=== PATIENT | male | born 1960 | race Caucasian/White ===

== ENCOUNTER 2018-01-17 18:19 | Emergency (ER) | payer MEDICARE, MEDICAID ==
[~2018-01-17] VITALS: Ht 182.9 cm; Wt 127.7 kg
[2018-01-17 18:34] LABS: GLUCOSE,POINT OF CARE 376 MG/DL (70-110)
[2018-01-17] MEDS ORDERED: SERT100T12 PO (18:37)
[2018-01-17] MEDS ORDERED: INSU100I3 SQ (18:37)
[2018-01-17] MEDS ORDERED: CLOZ100 PO (18:37)
[2018-01-17] MEDS ORDERED: TRAZ-219 PO (18:37)
[2018-01-17] MEDS ORDERED: GEMF600T3 PO (18:37)
[2018-01-17] MEDS ORDERED: INSLAN SQ (18:37)
[2018-01-17] MEDS ORDERED: METF500T6 PO (18:37)
[2018-01-17 19:51] LABS: BASOPHILS % (AUTO) 0.8 % (0.0-2.0); EOSINOPHILS % (AUTO) 2.5 % (1.0-6.0); HEMATOCRIT 37.1 % (41-53); HEMOGLOBIN 12.6 g/dL (13.5-17.5); LYMPHOCYTES # (AUTO) 1.8 K/uL (1.0-4.8); LYMPHOCYTES % (AUTO) 22.1 % (22.0-44.0); MEAN CORPUSCULAR HEMOGLOBIN 28.1 pg (26.0-34.0); MEAN CORPUSCULAR HGB CONC 33.9 G/dL (31.0-37.0); MEAN CORPUSCULAR VOLUME 83 fL (80-100); MONOCYTES # (AUTO) 0.4 K/uL (0.1-1.0); MONOCYTES % (AUTO) 5.2 % (2.0-9.0); NEUTROPHILS # (AUTO) 5.7 K/uL (1.8-7.7); NEUTROPHILS % (AUTO) 69.4 % (40.0-70.0); PLATELET COUNT (AUTO) 155 K/uL (150-450); RED BLOOD CELL COUNT(AUTO) 4.48 MIL/uL (4.50-5.90)
[2018-01-17 20:03] LABS: ANION GAP 16 mmol/L (8-16); CALCIUM, TOTAL 8.6 mg/dL (8.8-10.5); CARBON DIOXIDE 21 mmol/L (22-29); CHLORIDE 97 mmol/L (98-107); CREATININE 1.21 mg/dL (0.60-1.30); GLOMERULAR FILTR. RATE CALC > 60 mL/min (>60); GLUCOSE,RANDOM 385 mg/dL (70-110); POTASSIUM 4.2 mmol/L (3.5-5.1); SODIUM SERUM 134 mmol/L (136-145); UREA NITROGEN, BLOOD 18 mg/dL (7-18)
[2018-01-17 20:09] LABS: ALANINE AMINOTRANSFERASE 25 U/L (12-78); ALBUMIN 3.9 g/dL (3.4-5.0); ALKALINE PHOSPHATASE 93 U/L (46-116); ASPARTATE AMINOTRANSFERASE 33 U/L (15-37); BILIRUBIN,TOTAL 0.4 mg/dL (0.1-1.0); TOTAL PROTEIN, SERUM 8.2 g/dL (6.4-8.2)
[2018-01-17] MEDS ORDERED: INSULIN REGULAR, HUMAN 100 UNITS/ML SQ ONE (23:15)
[2018-01-17 23:51] VITALS: BP 126/86
[2018-01-17 23:58] LABS: GLUCOSE,POINT OF CARE 338 MG/DL (70-110)
== END 2018-01-17 23:55 | disposition home or self-care (01) ==
LOC: EMS 18:23
DX: Z04.6 Encounter for general psychiatric examination, requested by authority (principal); E11.65 Type 2 diabetes mellitus with hyperglycemia; F32.9 Major depressive disorder, single episode, unspecified; F20.9 Schizophrenia, unspecified; Z90.49 Acquired absence of other specified parts of digestive tract; Z79.4 Long term (current) use of insulin; Z79.899 Other long term (current) drug therapy
CPT/HCPCS: 36415; 80053; 82962; 85025; 96372; 99284; G0480; J1815

== ENCOUNTER 2018-03-31 17:59 | Emergency (ER) | payer MEDICARE, MEDICAID ==
[~2018-03-31] VITALS: Ht 182.9 cm; Wt 127.7 kg
[~2018-03-31 17:59] MED LIST: ACET-784 PO; AMPI3VIA IM; ASPI81TA87 PO; ATOR20TA86 PO; INSLAN SQ; MULT-1239 PO
[2018-03-31 22:13] VITALS: BP 132/78
== END 2018-03-31 22:17 | disposition home or self-care (01) ==
LOC: EMS 18:00
DX: S98.211D Complete traumatic amputation of two or more right lesser toes, subsequent encounter (principal); F32.9 Major depressive disorder, single episode, unspecified; E11.9 Type 2 diabetes mellitus without complications; E78.00 Pure hypercholesterolemia, unspecified; I10 Essential (primary) hypertension; F20.9 Schizophrenia, unspecified; Z90.49 Acquired absence of other specified parts of digestive tract; Z98.890 Other specified postprocedural states; Z79.82 Long term (current) use of aspirin; Z79.4 Long term (current) use of insulin; X58.XXXD Exposure to other specified factors, subsequent encounter
CPT/HCPCS: 99283

== ENCOUNTER 2018-04-06 14:48 | Emergency (ER) | payer MEDICARE, MEDICAID ==
[~2018-04-06] VITALS: Ht 182.9 cm; Wt 127.3 kg
[2018-04-06 19:23] VITALS: BP 149/83
== END 2018-04-06 19:40 | disposition home or self-care (01) ==
LOC: EMS 14:48
DX: F20.9 Schizophrenia, unspecified (principal); F32.9 Major depressive disorder, single episode, unspecified; E11.9 Type 2 diabetes mellitus without complications; E78.00 Pure hypercholesterolemia, unspecified; I10 Essential (primary) hypertension; Z90.49 Acquired absence of other specified parts of digestive tract; Z90.89 Acquired absence of other organs; Z89.421 Acquired absence of other right toe(s); Z79.4 Long term (current) use of insulin; Z79.899 Other long term (current) drug therapy; Z88.5 Allergy status to narcotic agent
CPT/HCPCS: 99284

== ENCOUNTER 2018-10-11 04:00 | Emergency (ER) | payer MEDICARE, MEDICAID ==
[~2018-10-11] VITALS: Ht 182.9 cm; Wt 113.6 kg
[2018-10-11] MEDS ORDERED: METF-960 PO (04:13)
[2018-10-11 04:14] LABS: GLUCOSE,POINT OF CARE 167 MG/DL (70-110)
[2018-10-11 06:30] VITALS: BP 91/53
== END 2018-10-11 07:32 | disposition home or self-care (01) ==
LOC: EMS 04:00
DX: L03.031 Cellulitis of right toe (principal); E11.9 Type 2 diabetes mellitus without complications; E78.00 Pure hypercholesterolemia, unspecified; I10 Essential (primary) hypertension; F32.9 Major depressive disorder, single episode, unspecified; F20.9 Schizophrenia, unspecified; Z88.5 Allergy status to narcotic agent; Z90.49 Acquired absence of other specified parts of digestive tract; Z89.421 Acquired absence of other right toe(s)